=== PATIENT | female | born 2000 | race Two or more races ===

== ENCOUNTER → 2019-12-15 | Outpatient (REF) | payer OTHER ==
[2019-12-15 21:39] LABS: CHLAMYDIA DNA AMPLIFICATION NEGATIVE (NEGATIVE); GC DNA AMPLIFICATION NEGATIVE (NEGATIVE)
== END ==
LOC: M SFHCLERA 17:44
PROVIDERS: ATTEND Nurse Practitioner Family
DX: R30.0 Dysuria (principal)
CPT/HCPCS: 81002; 81025; 87086; 87661; G0463

== ENCOUNTER 2020-08-08 16:05 | Inpatient (IN) | payer OTHER ==
[~2020-08-08] VITALS: Ht 157.5 cm; Wt 85.9 kg
[2020-08-08] MEDS ORDERED: PRENTAB9 PO (16:27)
[2020-08-08 16:29] VITALS: BP 116/59
[2020-08-08] MEDS ORDERED: LACTATED RINGER'S 1000 ML IV STA (18:47)
[2020-08-08] MEDS ORDERED: miSOPROStol 50 MCG 1/2 TAB (S0191) PO SCH (19:00)
[2020-08-08 19:29] VITALS: BP 111/56
[2020-08-08] MEDS: LR 1,000 ML IV SCH ×2 (20:20→23:03)
[2020-08-08 20:43] LABS: HEMATOCRIT 35.2 % (36.0-47.0); HEMOGLOBIN 10.9 g/dl (12.0-15.5); MEAN CORPUSCULAR HEMOGLOBIN 25.7 pg (27.0-33.0); PLATELET COUNT, AUTOMATED 259 10^3/uL (150-450); RED BLOOD COUNT 4.24 10^6/uL (4.00-5.40); WHITE BLOOD COUNT 11.9 10^3/uL (4.0-10.0)
[2020-08-08 20:54] VITALS: BP 124/70
[2020-08-08 21:39] VITALS: BP 112/57
[2020-08-08 22:29] VITALS: BP 115/61
[2020-08-08] MEDS ORDERED: PROMETHAZINE INJ 25 MG/ML VIAL (J2550) IV ONE (23:15)
[2020-08-08] MEDS ORDERED: BUTORPHANOL 2 MG/ML INJ (J0595) IV ONE (23:15)
--- NOTE | 2020-08-08 23:44 | HPEPDOC ---
Obstetrical History & Physical General Date of Admission Aug 08, 2020 at 18:28 History of Present Illness 20yo at 39+6wks presenting for c/o gush of clear fluid at 1300 with leaking of clear fluid with white matter since. Patient reports irregular ctx's. Denies VB. Reports good FM. 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 history Past Medical History Medical History Denies Surgical History: Denies/None Family History Significant Family History: No pertinent family hx Social History Marital Status: Family situation: Spouse/partner home Psychosocial History: No pertinent psych hx * Smoker: non-smoker Alcohol: Denies Drugs: denies Abuse Violence Screening Have you been hit/kicked/slapp: No Have you been sexually assault: No Imunizations Tdap status: current (05/21/2020) Influenza Status: current ([id number]) Allergies Coded Allergies: No Known Drug Allergies (Verified Allergy, Unknown, 08/08/20) Medications Scheduled No.137/Iron/Folic Acd ( Vitamin Tablet) 1 Each Tablet, 1 TAB PO DAILY Physical Examination Physical Examination GENERAL: Alert and oriented times three. ABDOMEN: Gravid and non-tender to touch. FETUS: Is vertex (VTX) by sterile vaginal examination (SVE), fetus is vertex (VTX) by Darren. CARDS: well-perfused RESP: no exaggerated respiratory effort appreciated, no cough EXTREMITIES: No edema. : NEFG, vernix and pooling noted on perineum, SVE ft/thick/high Vital Signs/I&O Vital Signs Date Time Temp Pulse Resp B/P (MAP) Pulse Ox O2 Delivery O2 Flow Rate FiO2 08/08/20 21:39 97.9 96 18 112/57 (75) 08/08/20 19:29 98 Room Air Laboratory Data 24H LABS Laboratory Tests 2 08/08/20 18:35: Serology Scanned Report Hepatitis B Testing 08/08/20 18:47: Syphilis Serology NONREACTIVE 08/08/20 19:00: Nucleated Red Blood Cells % (auto) 0.0 CBC/BMP Laboratory Tests 08/08/20 19:00 Urine Culture: No Growth Pertinent Laboratoy Data Blood Type: O+ RBC Antibody Screen: Negative HIV: Negative Hepatitis B: Negative Rapid Plasma Reagin: Nonreactive Rubella: Immune Varicella: Immune Chlamydia/Gonorrhea: Negative Group B Streptococcus: Negative ([id number]) Cystic Fibrosis: Negative Glucose Tolerance Test: 128 Anatomy Ultrasound Ultrasound Date: March 22, 2020 Placenta Location: Anterior Normal Anatomy: Yes Other Ultrasounds [id number] - EFW 58th percentile Vaginal Examination Dilation: Fingertip Effacement: 30% Station: -3 Cervical Consistency: Firm Cervical Position: Posterior Presentation: Cephalic presentation Assessment Heart Rate (FHR): 140 Variability: Moderate Accelerations: Present Decelerations: None Tocometer Contractions: Yes Frequency: irregular Multi-drug resistant Organism: No history of MDRO Assessment/Plan Assessment 20yo at 39+6wks with PROM of clear fluid. SVE ft/thick/high. GBS neg. EFW 3500g. Plan Admit and orient. Imaging Services Director and consent. Diet: Regular as tolerated until active labor Group B Streptococcus (GBS) negative. Labs and intravenous (IV) per unit protocol. Counseled on Pitocin and induction of labor (IOL). Patient counseled on cytotec vs contreras vs pitocin and elects for cytotec. Lactated Ringers (LR): Bolus 1000mL, then at 125 mL/hr. Anticipate normal spontaneous delivery (). C-S as appropriate. EMILIE GIVENS DO Aug 08, 2020 23:44
[2020-08-08 23:47] VITALS: BP 112/73
[2020-08-09] VITALS (72 sets, daily range): BP systolic 81–170; BP diastolic 46–100
--- NOTE | 2020-08-09 00:13 | IPNPDOC ---
Obstetrical Progress Note Date of Service Aug 09, 2020 Subjective Patient reports feeling well. Endorses mild ctx's. Objective Vital Signs Date Time Temp Pulse Resp B/P (MAP) Pulse Ox O2 Delivery O2 Flow Rate FiO2 08/08/20 21:39 97.9 96 18 112/57 (75) 08/08/20 19:29 98 Room Air Assessment Heart Rate (FHR): 145 Variability: Moderate Accelerations: None Decelerations: Late, Intermittent Heart Rate Tracing: Category II Tocometer Contractions: Yes Frequency: every 2-5 min. Sterile Vaginal Examination Dilation: 1cm Effacement (%): 30% Station: -3 Cervical Consistency: Firm Cervical Position: Posterior Postion/Presentation: Cephalic presentation Assessment and Plan Status: Reassuring Group B Streptococcus: Negative Additional Comments FHRT has been intermittently cat II for late decels and periods of minimal variability since cytotec dosage at 1940. Patient counseled that do not recommend repeated doses of cytotec. We discussed alternatives of Contreras bulb and pitocin protocol but my concern for intermittent cat II FHR would limit ability to start pitocin at this time. Patient elects for contreras bulb. Patient requested pain meds prior but due to FHRT, unable to give IV pain meds at this time and patient amenable to attempt at placement without medication. Contreras placed with 60ml intrauterine bulb. If FHR returns to cat I status for minimum of 20 minutes, will start low-dose pitocin protocol. Will closely observe for expectant . EMILIE GIVENS DO Aug 09, 2020 00:13
[2020-08-09] MEDS ORDERED: BUTORPHANOL 2 MG/ML INJ (J0595) IV ONE (04:15)
--- NOTE | 2020-08-09 08:15 | IPNPDOC ---
Obstetrical Progress Note Date of Service Aug 09, 2020 Subjective 20 at 40w0d with CHIQUITA of 08/09/2020 is admitted for PROM since 1300 yesterday. She has a cook balloon in place since 14. She is breathing through contractions. Has received 2 doses of stadol with "some" pain relief. She desires for epidural for pain management during her labor process. Discussed plan of care with patient and her spouse with recommendations to start pitocin and may have epidural upon demand. Patient and spouse are agreeable to plan. Objective Vital Signs Date Time Temp Pulse Resp B/P (MAP) Pulse Ox O2 Delivery O2 Flow Rate FiO2 08/09/20 07:38 98.0 95 18 129/76 (93) 08/09/20 00:48 Room Air 08/08/20 19:29 98 Cook catheter remains in place at this time. Assessment Heart Rate (FHR): 140 Variability: Minimal Accelerations: Present Decelerations: None Tocometer Contractions: Yes Frequency: other (every 6-7) Sterile Vaginal Examination Postion/Presentation: Cephalic presentation Assessment and Plan Age: 20 : 1 Term: 0 Pre-term: 0 Abortions: 0 Livin EGA at Admission: 39 (+6) Weeks & Days 40w0d Status: Reassuring Group B Streptococcus: Negative (Will start pitocin) Anticipate: Vaginal Delivery Additional Comments Will start pitocin at this time Coordinate epidural upon demand CARL ESTRADA CNM Aug 09, 2020 08:15
[2020-08-09] MEDS: OXYTOCIN DRIP 30 UNITS in IV 1 EA IV SCH ×2 (08:19→22:31)
[2020-08-09] MEDS ORDERED: FENTANYL 2MCG/ML ROPIVACAINE 0.2% IN 0.9% NACL 100ML IVBAG As Ordered ONE (09:30)
[2020-08-09] MEDS: LR 1,000 ML IV SCH ×4 (09:31→17:43)
[2020-08-09] MEDS ORDERED: ePHEDrine SULFATE 25 MG/5 ML(5MG/ML) SYRINGE IV PRN (10:30)
[2020-08-09] MEDS ORDERED: REFRIGERATOR IV KEYS XX PRN (10:30)
[2020-08-09] MEDS ORDERED: LACTATED RINGER'S 1000 ML IV PRN (10:30)
[2020-08-09] MEDS ORDERED: diphenhydrAMINE 50MG/ML VIAL (J1200) IV PRN ×3 (10:30→23:15)
[2020-08-09] MEDS ORDERED: NALOXONE INJ 0.4MG/1ML VIAL (J2310 PER 1MG) IV PRN ×3 (10:30→21:02)
[2020-08-09] MEDS: FENTANYL/ROPIVACAINE/NACL BAG 100 ML EPIDURAL SCH ×2 (10:30→17:38)
[2020-08-09] MEDS ORDERED: ONDANSETRON 4MG/2ML VIAL IV PRN ×3 (10:30→23:15)
[2020-08-09] MEDS ORDERED: EPIDURAL/PCA KEYS XX PRN (10:30)
[2020-08-09] MEDS ORDERED: EPIDURAL COMMENT XX SCH (10:30)
--- NOTE | 2020-08-09 11:49 | IPNPDOC ---
Obstetrical Progress Note Date of Service Aug 09, 2020 Subjective 20 yo at 40w0d admitted for PROM. The cook balloon had come out on its own and was intact. She received her epidural and continues to have pain on the maternal left abdomen. She has supportive family at the bedside. Pitocin at 8 mu/min. Objective Vital Signs Date Time Temp Pulse Resp B/P (MAP) Pulse Ox O2 Delivery O2 Flow Rate FiO2 08/09/20 08:56 98.2 89 18 129/75 (93) 08/09/20 00:48 Room Air 08/08/20 19:29 98 Assessment Heart Rate (FHR): 140 Variability: Moderate Accelerations: Present Decelerations: Variable Tocometer Contractions: Yes Frequency: other (every 3-4 minutes) Sterile Vaginal Examination Dilation: 6 cm Effacement (%): 70% Station: -3 Cervical Consistency: Soft Cervical Position: Middle Postion/Presentation: Cephalic presentation Assessment and Plan Age: 20 : 1 Term: 0 Pre-term: 0 Abortions: 0 Livin EGA at Admission: 39 (+6) Weeks & Days 40w0d Status: Reassuring Group B Streptococcus: Negative Anticipate: Vaginal Delivery CARL ESTRADA CNM Aug 09, 2020 11:49
[2020-08-09] MEDS ORDERED: ACETAMINOPHEN 500 MG TAB PO PRN ×2 (17:15→22:45)
--- NOTE | 2020-08-09 19:45 | IPNPDOC ---
Text Note Date of Service The patient was seen on 08/09/20. NOTE 1930 hours review progress now fully dilated moulding noted still moderate varibility with occasional late -3 station patient temp was 101.2 now 99.5 . plan to allow pushing 1 hour if no progress or nrfht or persistent elevated temperature will consider cs. bp 130/66,rr 18 p 108 safe to proceed patient expressed understanding of plan VS,Fishbone, I+O VS, Fishbone, I+O Vital Signs Date Time Temp Pulse Resp B/P (MAP) Pulse Ox O2 Delivery O2 Flow Rate FiO2 08/09/20 17:59 100.1 108 18 130/66 (87) 08/09/20 00:48 Room Air 08/08/20 19:29 98 I&O- Last 24 Hours up to 6 AM 08/09/20 06:01 Intake Total 1797 ml Output Total 2050 ml Balance -253 ml Stephen Gr MD Aug 09, 2020 19:45
[2020-08-09] MEDS ORDERED: LR 1,000 ML IV SCH ×2 (20:11→22:31)
[2020-08-09] MEDS ORDERED: LACTATED RINGER'S 1000 ML IV ONE (20:15)
[2020-08-09] MEDS ORDERED: AZITHROMYCIN INJ 500 MG, VIAL MATE ADAPTER 1 EACH in D5W 250 ML IV ONE (20:15)
[2020-08-09] MEDS ORDERED: BUPIVACAINE HCL 0.25% 10ML VIAL SC ONE (20:15)
[2020-08-09] MEDS ORDERED: BICITRA 30ML SOLN UDC PO ONE (20:15)
[2020-08-09] MEDS ORDERED: ceFAZolin SOD 2 GM in IV 1 EA IV ONE (20:15)
[2020-08-09] MEDS ORDERED: ACETAMINOPHEN 650 MG SUPP PR SCH (20:15)
--- NOTE | 2020-08-09 20:33 | IPNPDOC ---
Text Note Date of Service The patient was seen on 08/09/20. NOTE 2230 HOURS REASSESSMENT PATIENT WAS PUSHING NOT EFFECTIVELY NOW REFUSES TO PUSH DISCUSSED CS WITH PATIENT RE RISKS HEMORRHAGE INFECTION PERFORATION REOPERATION REMOTE BLOOD TRANSFUSION FOR INTRACTABLE BLEEDING REMOTE HYSTERECTOMY FOR LIFE THREATENING BLEEDING REMOTE LACERATION OR ADMISSION TO NICU . EXPRESSED UNDERSTANDING SIGNED CONSENT NOTIFIED ANAESTHESIA AND NEON ATOLOGY VS,Fishbone, I+O VS, Fishbone, I+O Vital Signs Date Time Temp Pulse Resp B/P (MAP) Pulse Ox O2 Delivery O2 Flow Rate FiO2 08/09/20 20:14 141 128/62 (84) 08/09/20 17:59 100.1 18 08/09/20 00:48 Room Air 08/08/20 19:29 98 I&O- Last 24 Hours up to 6 AM 08/09/20 06:00 Intake Total 1797 ml Output Total 2050 ml Balance -253 ml Stephen Gr MD Aug 09, 2020 20:33
[2020-08-09] MEDS ORDERED: MORPHINE PRES-FREE INJ 10 MG/10 ML VIAL (J2274) As Ordered ONE (20:46)
[2020-08-09] MEDS ORDERED: OXYTOCIN 30 UNITS IN 0.9% NaCl 500ML IV BAG (J2590) As Ordered ONE ×2 (20:48→22:14)
[2020-08-09] MEDS ORDERED: PHENYLephrine HCL 500 MCG/5 ML (100MCG/ML) SYRINGE (J2370) As Ordered ONE (20:49)
[2020-08-09] MEDS ORDERED: ePHEDrine SULFATE 25 MG/5 ML(5MG/ML) SYRINGE As Ordered ONE (20:49)
[2020-08-09] MEDS ORDERED: NALBUPHINE HCL 10 MG/ML AMP (J2300) IV PRN (21:02)
[2020-08-09] MEDS ORDERED: METOCLOPRAMIDE INJ 10MG/2ML VIAL (J2765 PER 1) IV PRN (21:02)
[2020-08-09] MEDS ORDERED: MIDAZOLAM INJ 2MG/2ML VIAL (J2250 PER 1MG) As Ordered ONE (21:13)
[2020-08-09] MEDS ORDERED: OXYTOCIN INJ 10 UNITS/ML VIAL (J2590) As Ordered ONE (21:19)
[2020-08-09 21:32] LABS: CORD GAS ABE V -6.5; CORD GAS HCO3 V 24.2 MEQ/L; CORD GAS O2 SAT V 18.6 %; CORD GAS PCO2 V 70.5 mmHg; CORD GAS PH V 7.153 UNITS; CORD GAS PO2 V 15.1 mmHg; CORD GAS SBC V 17.3 MEQ/L; CORD GAS TCO2 V 26.3 MEQ/L
[2020-08-09] MEDS ORDERED: KETOROLAC 60MG 2ML VIAL As Ordered ONE (21:35)
[2020-08-09] MEDS ORDERED: ONDANSETRON 4MG/2ML VIAL As Ordered ONE (21:35)
[2020-08-09 21:36] LABS: CORD GAS ABE A -9.6; CORD GAS HCO3 A 21.7 MEQ/L; CORD GAS O2 SAT A 16.4 %; CORD GAS PCO2 A 71.1 mmHg; CORD GAS PH A 7.102 UNITS; CORD GAS PO2 A 13.4 mmHg; CORD GAS SBC A 15.2 MEQ/L; CORD GAS TCO2 A 23.9 MEQ/L
[2020-08-09] MEDS ORDERED: DOCUSATE SODIUM 100 MG CAP PO PRN (22:45)
[2020-08-09] MEDS ORDERED: ACETAMINOPHEN TAB 650MG DOSE (2X325MG) PO PRN (22:45)
[2020-08-09] MEDS ORDERED: OXYTOCIN INJ 10 UNITS/ML VIAL (J2590) IV ONE (22:45)
[2020-08-09] MEDS ORDERED: OXYTOCIN DRIP 30 UNITS in IV 1 EA IV ONE (22:45)
[2020-08-09] MEDS ORDERED: METHYLERGONOVINE MALEATE 0.2 MG TAB PO PRN (22:45)
[2020-08-09] MEDS ORDERED: PERCOCET 5MG/325MG TAB PO PRN (22:45)
[2020-08-09] MEDS ORDERED: MEASLES,MUMPS,RUBELLA VACCINE INJ (MMR-II) (90707) SC SCH (22:45)
[2020-08-09] MEDS ORDERED: RHOGAM 300 MCG (1500 IU) INJ (J2790) IM SCH (22:45)
[2020-08-09] MEDS ORDERED: MOM 30ML SUSPENSION UDC PO PRN (22:45)
[2020-08-09] MEDS ORDERED: fentaNYL 100 MCG/2 ML INJECTION (J3010) IV PRN (23:15)
[2020-08-09] MEDS ORDERED: HYDROMORPHONE HCL 0.5 MG/ 0.5 ML SYRINGE (J1170 PER 1) IV PRN (23:15)
[2020-08-09] MEDS ORDERED: oxyCODONE 5MG TAB PO PRN (23:15)
[2020-08-09] MEDS ORDERED: MEPERIDINE INJ 25 MG/ML VIAL (J2175) IV PRN (23:15)
[2020-08-10] VITALS (9 sets, daily range): BP systolic 122–136; BP diastolic 61–71
[2020-08-10] MEDS: KETOROLAC 30 MG/ML 1ML VIAL IV SCH ×3 (03:27→16:32)
[2020-08-10] MEDS: AMPICILLIN SOD/SULBACTAM SOD 3 GM in D5W MINI-BAG PLUS 100 ML IV SCH ×2 (05:34→17:52)
[2020-08-10] MEDS ORDERED: AMPICILLIN SOD/SULBACTAM SOD 3 GM in D5W MINI-BAG PLUS 100 ML IV SCH (06:00)
[2020-08-10 08:06] LABS: HEMATOCRIT 33.6 % (36.0-47.0); HEMOGLOBIN 10.7 g/dl (12.0-15.5); MEAN CORPUSCULAR HEMOGLOBIN 26.8 pg (27.0-33.0); MEAN CORPUSCULAR HGB CONC 31.8 g/dl (32.0-36.5); MEAN CORPUSCULAR VOLUME 84.2 fl (80.0-96.0); PLATELET COUNT, AUTOMATED 228 10^3/uL (150-450); RED BLOOD COUNT 3.99 10^6/uL (4.00-5.40); WHITE BLOOD COUNT 23.5 10^3/uL (4.0-10.0)
[2020-08-10] MEDS: PRENATAL VITAMINS CHEWABLE TABLET PO SCH (08:28)
--- NOTE | 2020-08-10 08:46 | IPNPDOC ---
Text Note Date of Service The patient was seen on 08/10/20. NOTE 08/10/2020 0845 POST OP CHORIOAMNIONITIS DOING WELL ABDOMEN SOFT BOWEL SOUNDS NOTED VOIDING PASSING GAS ANTIBIOTICS RUNNING X 24 HOURS VS,Zurdo, I+O VS, Zurdo, I+O Laboratory Tests 08/10/20 07:21 Vital Signs Date Time Temp Pulse Resp B/P (MAP) Pulse Ox O2 Delivery O2 Flow Rate FiO2 08/10/20 06:27 97.8 94 18 122/62 (82) 98 08/10/20 02:30 Room Air I&O- Last 24 Hours up to 6 AM 08/10/20 06:00 Intake Total 4290 ml Output Total 5500 ml Balance -1210 ml Stephen Gr MD Aug 10, 2020 08:46
[2020-08-10] MEDS: IBUPROFEN 800 MG TAB PO SCH (23:45)
[2020-08-11 01:47] VITALS: BP 133/69
[2020-08-11 05:39] VITALS: BP 134/79
[2020-08-11] MEDS ORDERED: IBUP80TA PO (06:11)
[2020-08-11] MEDS ORDERED: PERCOCET PO (06:11)
[2020-08-11] MEDS ORDERED: DOCU100C16 PO (06:11)
[2020-08-11] MEDS: IBUPROFEN 800 MG TAB PO SCH ×3 (08:36→23:16)
[2020-08-11] MEDS: PRENATAL VITAMINS CHEWABLE TABLET PO SCH (08:37)
[2020-08-11 10:28] VITALS: BP 131/70
[2020-08-11 17:59] VITALS: BP 124/79
[2020-08-12 06:00] VITALS: BP 124/70
--- NOTE | 2020-08-12 08:32 | RO ---
DATE OF OPERATION: 08/09/2020 PREOPERATIVE DIAGNOSIS: Primary section for maternal fever, failure to descend, and tachycardia. POSTOPERATIVE DIAGNOSIS: Maternal fever, failure to descent, tachycardia. ANESTHESIA: Spinal after two failed epidurals and local anesthetic for intraperitoneal procedures. ESTIMATED BLOOD LOSS: 300 mL. This is a 20-year-old 1, who was admitted for induction of labor at 39 and 6 weeks of gestation with spontaneous rupture of membranes at 1300 hours, 0615:20. After adequate time-out, prepped and draped in the supine position. Landers catheter in the bladder draining clear urine. Pfannenstiel incision was made two fingerbreadths above the symphysis pubis, passing through abdominal layer, securing hemostasis. Opening peritoneal cavity, bladder reflected well down anteriorly, Mobius was placed. Low transverse incision was made into the uterus, and we delivered a live- male infant weighing 7 pounds 1 ounce, 3206 grams, scores 1, 3, and 7 at one, five, and 10 minutes of delivery. Arterial pH was 7.10, base excess -9.6. Venous pH 7.15, base excess -6.5. Cord was around the neck times two. Placenta was manually removed and sent off to pathology under separate cover. Aerobic and anaerobic cultures were done from the uterus. The uterus was closed in two layers with the second layer imbricated. Re-peritonealization was performed. The Mobius was removed. Both ovaries and tubes appeared to be normal. the abdomen was then closed with running stitch for the peritoneum, same for the fascia, interrupted for subcutaneous, Marcaine 0.25% to the skin, and a Mepore dressing was placed. Acetaminophen suppository 1300 mg per rectum was placed after the procedure. Patient tolerated the procedure well. Baby was in the intensive care unit (NICU). [facility]INICAntoinette
[2020-08-12] MEDS: PRENATAL VITAMINS CHEWABLE TABLET PO SCH (09:02)
[2020-08-12] MEDS: IBUPROFEN 800 MG TAB PO SCH (09:03)
--- NOTE | 2020-08-12 10:15 | DS ---
DATE OF ADMISSION: 08/08/2020 DATE OF DISCHARGE: 08/11/2020 This is a 20-year-old 1 who was admitted for induction of labor at 39 and 6 weeks gestation, had spontaneous rupture of membranes (SROM) at 1300 hours 08/08/2020. She had a primary section for a male 7 pounds 1 ounce (3206 grams). Apgars of 1, 3 and 7 at 1, 5 and 10 minutes. Cord x2 around the neck. Arterial pH 7.10, base access -9.6, venous pH 7.15, base access -6.5. Her course was listed with maternal fever, failure to descend, and tachycardia the reason for the primary section. On her day, her blood pressure was 134/79, respirations were 18, pulse was 81, temperature 98.7. She had received one 24 hour period of Unasyn postop and she never had a temperature after delivery. The last elevated temperature was predelivery, which was 1014. Her lab work, her admitting hemoglobin 10.9, hematocrit 35.2, and platelets were 259,000. Her white count on admission was 11.9. On day one, her white count was elevated to 23.5, hemoglobin 10.7, hematocrit 33.6, and platelets were 228,000. She had aerobic and anaerobic cultures done on the intrauterine environment and they are pending. The rest of the examination is unremarkable. She is normocephalic, atraumatic. Neck with full range of motion. Pupils equal and reactive to light. Distal pulses symmetric. No evidence of DVT, PE, or superficial phlebitis. Chest is clear bilaterally to the bases. No wheezes or rhonchi. No CVA tenderness. Abdomen is soft. Four quadrant bowel sounds are noted. Incision is clean and dry. She has no rashes, lesions, or pruritus. No arthralgias or myalgias. No complaint of joint pain. No complaint of cough, wheeze, shortness of breath, or dyspnea on exertion. No nausea, vomiting, diarrhea, or constipation. No urgency or frequency. She is presently down in the nursery seeing her baby. The baby will be there for approximately five days. She is discharged to boarder status. 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 All questions were answered. Twenty minute discussion. FAIZA
--- NOTE | 2020-08-12 11:20 | IPN ---
DATE: 08/09/2020 This lady is a 20-year-old 1 at 39 and 6 weeks of gestation, admitted with a spontaneous rupture of membranes at 1300 hours on 08/08/2020. She was having some irregular contractions. Uneventful past history. She had Cytotec times two, and then she had a Landers bulb placed with Pitocin. She had intermittent category 2 strip with limited ability to start the Pitocin immediately but effective if it was a category 1 strip. She requested pain management and was given intravenous (IV) pain medications. Evaluation by the boiler washer after having two doses of Stadol and Phenergan with pain relief, she requested an epidural, which was done. Her blood pressures were reasonable. Temperature was 98.0. Presently she is now 40 weeks of gestation. She has had 21 hours of ruptured membranes. The Cook's balloon came out on its own, was intact. She had her epidural. Her temperature still normal. Her blood pressures were in the normal range. She was feeling pressure and examined by the nurse, found to be 5-6 cm. she then developed a temperature of 101.2 with some tachycardia. She was given 1000 of Tylenol, reduced the temperature somewhat to 100.1. On examination with increasing pelvic pressure she was found to be small lip on the right side, but it was swollen. She has marked moulding. It is -3 station, and she is still complaining of rectal pressure. With a tachycardia and elevated temperature, we will give her a 1-hour preview to see if we can get rid of the small lip on the right side. She was rotated to the opposite side. A bolus of fluids was given. The monitor strip seemed to somewhat improve, and our plan of management is to re-evaluate her in one hours' time. Safe to proceed. [facility]
--- NOTE | 2020-08-15 15:25 | IPN ---
DATE: 08/10/2020 This patient requested circumcision of her male . After discussing the risks and benefits of circumcision, the medical to non-medical indications, the penile block and aftercare, expressed understanding of penile block and aftercare and bleeding, signed the consent form, all questions were answered, 20 minute discussion. We await the clearance by the communications systems engineer. FAIZA
== END 2020-08-12 12:12 | disposition home or self-care (01) | DRG 772 ==
LOC: M LDO 16:05 → M LDI 18:28 → M OBS 08-09 23:55
PROVIDERS: ADMIT Registered Nurse Maternal Newborn; ATTEND Obstetrics & Gynecology
PROC: 10D00Z1 Extraction of Products of Conception, Low, Open Approach (ICD-10-PCS; principal; 2020-08-09 20:10)
DX: O42.02 Full-term premature rupture of membranes, onset of labor within 24 hours of rupture (principal); O75.2 Pyrexia during labor, not elsewhere classified; O76 Abnormality in fetal heart rate and rhythm complicating labor and delivery; Z3A.39 39 weeks gestation of pregnancy; O69.1XX0 Labor and delivery complicated by cord around neck, with compression, not applicable or unspecified; Z37.0 Single live birth

== ENCOUNTER 2020-08-30 01:34 | Emergency (ER) | payer OTHER ==
[~2020-08-30] VITALS: Ht 157.5 cm; Wt 73.8 kg
[~2020-08-30 01:34] MED LIST: DOCU100C16 PO; IBUP80TA PO; PERCOCET PO; PRENTAB9 PO
[2020-08-30 03:15] VITALS: BP 120/70
== END 2020-08-30 03:15 | disposition home or self-care (01) ==
LOC: M ED 01:34
DX: O90.0 Disruption of cesarean delivery wound (principal)

== ENCOUNTER 2021-03-10 08:36 | Emergency (ER) | payer OTHER ==
[~2021-03-10] VITALS: Ht 157.5 cm; Wt 68.7 kg
[2021-03-10 08:37] VITALS: BP 117/82
[2021-03-10] MEDS ORDERED: ADDE20CA3 PO (08:44)
[2021-03-10] MEDS ORDERED: IBUP200C28 PO (09:24)
[2021-03-10] MEDS ORDERED: ACETAMINOPHEN 325 MG TAB PO ONE (09:30)
== END 2021-03-10 09:52 | disposition home or self-care (01) ==
LOC: M ED 08:36
DX: R51.9 Headache, unspecified (principal); M79.10 Myalgia, unspecified site; F90.9 Attention-deficit hyperactivity disorder, unspecified type; Z79.899 Other long term (current) drug therapy

== ENCOUNTER 2022-09-20 07:05 | Emergency (ER) | payer OTHER ==
[~2022-09-20] VITALS: Ht 157.5 cm; Wt 74.1 kg
[~2022-09-20 07:05] MED LIST changes: +ADDE20CA3 PO; +IBUP200C28 PO
[2022-09-20 07:51] VITALS: BP 128/72
== END 2022-09-20 08:11 | disposition home or self-care (01) ==
LOC: M ED 07:45
DX: S93.504A Unspecified sprain of right lesser toe(s), initial encounter (principal); S90.121A Contusion of right lesser toe(s) without damage to nail, initial encounter; S91.204A Unspecified open wound of right lesser toe(s) with damage to nail, initial encounter; W22.8XXA Striking against or struck by other objects, initial encounter; Y92.099 Unspecified place in other non-institutional residence as the place of occurrence of the external cause